=== PATIENT | female | born 1950 | race Caucasian/White ===

== ENCOUNTER 2016-11-13 06:28 | Outpatient (CLI) | payer OTHER | END 2016-11-13 06:29 | disposition home or self-care (01) | DX: D50.9 Iron deficiency anemia, unspecified (principal); R06.02 Shortness of breath ==

== ENCOUNTER 2016-12-02 11:35 | Outpatient (CLI) | payer OTHER | END 2016-12-02 11:36 | disposition home or self-care (01) | DX: R06.02 Shortness of breath (principal); I10 Essential (primary) hypertension; I51.7 Cardiomegaly ==

== ENCOUNTER 2018-02-23 08:00 | Outpatient (CLI) | payer OTHER ==
[2018-02-23 12:20] LABS: BASOPHILS # (AUTO) 0.1 10^3/uL (0.0-0.1); BASOPHILS % (AUTO) 1.2 %; EOSINOPHILS # (AUTO) 0.2 10^3/uL (0.0-0.7); EOSINOPHILS % (AUTO) 3.5 %; HGB - HEMOGLOBIN 13.6 g/dL (12.0-16.0); LYMPHOCYTES # (AUTO) 1.7 10^3/uL (1.5-3.5); LYMPHOCYTES % (AUTO) 38.6 %; MEAN CORPUSCULAR HEMOGLOBIN 30.8 pg (27.0-31.0); MEAN CORPUSCULAR HGB CONC 34.4 g/dL (32.0-36.0); MEAN CORPUSCULAR VOLUME 89.6 fL (81.0-99.0); MEAN PLATELET VOLUME 9.7 fL (7.9-10.8); MONOCYTES # (AUTO) 0.4 10^3/uL (0.0-1.0); MONOCYTES % (AUTO) 9.6 %; NEUTROPHILS # (AUTO) 2.1 10^3/uL (1.5-6.6); NEUTROPHILS % (AUTO) 47.1 %; PLT - PLATELET COUNT 240 10^3/uL (130-450); RED BLOOD COUNT 4.41 10^6/uL (4.20-5.40); RED CELL DISTRIBUTION WIDTH 13.7 % (12.0-15.0); WHITE BLOOD COUNT 4.4 x10^3/uL (4.8-10.8)
[2018-02-23 12:57] LABS: THYROID STIMULATING HORMONE 1.4 uIU/mL (0.34-5.60)
[2018-02-23 12:59] LABS: HB2 TOTAL 15.3 g/dL; HEMOGLOBIN A1C 0.62 g/dL; HEMOGLOBIN A1C % 5.9 % (4.6-6.2)
[2018-02-23 13:03] LABS: FERRITIN 34.1 ng/mL (11.0-306.8)
[2018-02-23 13:04] LABS: % IRON SATURATION 17 % (20-50); ALBUMIN/GLOBULIN RATIO 1.5 (1.0-2.2); ALKALINE PHOSPHATASE 47 IU/L (42-121); ALT ALANINE AMINOTRANSFERASE 17 IU/L (10-60); AST ASPARTATE AMINOTRANSFERASE 20 IU/L (10-42); BILIRUBIN,TOTAL 0.8 mg/dL (0.2-1.0); BUN - BLOOD UREA NITROGEN 17 mg/dL (6-20); CARBON DIOXIDE - CO2 28 mmol/L (21-32); CHLORIDE 102 mmol/L (101-111); CHOL/HDL RATIO 3.4 (<4.4); CHOLESTEROL 208 mg/dL; CREATININE 0.7 mg/dL (0.4-1.0); GFR - MDRD 83 (>89); GLUCOSE 94 mg/dL (70-100); HDL CHOLESTEROL 62 mg/dL; IRON 60 ug/dL (28-170); LDL CHOLESTEROL,CALCULATED 131 mg/dL; LDL/HDL RATIO 2.1 (<4.4); SODIUM 138 mmol/L (135-145); TOTAL IRON BINDING CAPACITY 346 ug/dL (250-450); TOTAL PROTEIN 6.7 g/dL (6.7-8.2); TRANSFERRIN 247 mg/dL (192-382); VLDL CHOLESTEROL 15 mg/dL
== END 2018-02-23 08:01 | disposition home or self-care (01) ==
LOC: LAB.WCP 08:00
PROVIDERS: ATTEND Family Medicine
DX: I10 Essential (primary) hypertension (principal); E78.5 Hyperlipidemia, unspecified; D50.9 Iron deficiency anemia, unspecified; R73.01 Impaired fasting glucose
CPT/HCPCS: 36415; 80053; 80061; 82607; 82728; 83036; 83540; 83721; 84443; 84466; 85025

== ENCOUNTER 2018-05-12 08:15 | Outpatient (CLI) | payer OTHER ==
--- NOTE | 2018-05-12 16:00 | DEXA Report ---
Procedure Date: 05/12/2018 Accession Number: [id number] / [id number] Procedure: DEX - Dexa Spine and/or Hip CPT Code: FULL RESULT: EXAM: Dexa Spine and/or Hip DATE: 05/12/2018 8:47 AM CLINICAL HISTORY: POSTMENOPAUSAL TECHNIQUE: Dual energy x-ray absorptiometry (DXA) was performed on a [employer] System. Regions measured are the AP Spine, femoral neck, and if needed forearm. COMPARISON: None. In accordance with the International Society for Clinical Densitometry (ISCD) guidelines, data from previous exams may be reanalyzed using current recommendations and techniques. This is done to allow a more accurate basis for comparison with the current study. FINDINGS: The data for the lumbar spine is as follows: BMD (g/cm/cm) T-SCORE Z-SCORE REGION L1 1.177 0.4 1.3 L2 1.374 1.4 2.4 L3 1.421 1.8 2.8 L4 1.250 0.4 1.4 TOTAL 1.304 1.0 2.0 NOTE: All evaluable vertebrae are used for classification The data for the hip is as follows: BMD (g/cm/cm) T-SCORE Z-SCORE REGION Neck 0.895 -1.0 0.1 TOTAL 0.857 -1.2 -0.3 NOTE: The femoral neck or total proximal femur, whichever is lowest, is used for classification. IMPRESSION: THE WHO CLASSIFICATION BASED ON THE INTERNATIONAL REFERENCE STANDARD IS OSTEOPENIA. THE FRACTURE RISK IS INCREASED. Please note that bone density in the spine is preserved at this time. RECOMMENDATION: Patients with diagnosis of osteoporosis or osteopenia should have regular bone mineral density assessment. For those eligible for Medicare, routine testing is allowed once every 2 years. Testing frequency can be increased for patients who have rapidly progressing disease or for those who are receiving medical therapy to restore bone mass. COMMENT: World Health Organization (WHO) definitions for osteoporosis and osteopenia: NORMAL BMD: T-score at -1.0 or higher, fracture risk is low OSTEOPENIA BMD: T-score between -1.0 and -2.5, fracture risk is increased. OSTEOPOROSIS BMD: T-score at -2.5 or lower, fracture risk is high. National Osteoporosis Foundation recommends: 1. Obtain adequate dietary calcium (at least 1200 mg per day) and vitamin D (400-800 international units per day). 2. Participate, as appropriate, in regular weightbearing and muscle-strengthening exercise. 3. Avoid tobacco use and reduce alcohol and caffeine intake. 4. For more detailed information see the website at www.NOF.org.
== END 2018-05-12 08:16 | disposition home or self-care (01) ==
LOC: DI 08:15
PROVIDERS: ATTEND Family Medicine
DX: M85.88 Other specified disorders of bone density and structure, other site (principal)
CPT/HCPCS: 77080

== ENCOUNTER 2018-07-02 15:18 | Outpatient (CLI) | payer OTHER ==
--- NOTE | 2018-07-05 09:28 | Mammography Report ---
Reason: SCREENING MAMMO Procedure Date: 07/02/2018 Accession Number: [id number] / [id number] Procedure: AMIRA - Screening Mammo Dig Bilat CPT Code: FULL RESULT: EXAM: Screening Mammo Dig Bilat DATE: 07/02/2018 3:50 PM CLINICAL HISTORY: 67-year-old female presents for screening mammography. TECHNIQUE: Bilateral CC and MLO views were obtained. COMPARISON: 04/20/2015, 10/21/2013, 07/23/2011, 07/15/2011. FINDINGS: The breasts demonstrate scattered fibroglandular densities bilaterally. In the right upper breast 7.7 cm from the nipple, best seen on the MLO view with the suspect correlate on craniocaudal view at the 12:00 position is a cluster of microcalcifications with a developing focal asymmetry. This warrants further imaging, preferably with 3-D technique to exclude summation artifact. No suspicious masses, clustered microcalcifications, or regions of architectural distortion are identified. IMPRESSION: Incomplete examination RECOMMENDATION: Additional evaluation as above. BIRADS CATEGORY 0: Incomplete examination STANDARD QUALIFYING STATEMENTS: 1. This examination was not reviewed with the aid of Computer-Aided Detection (CAD). 2. A negative or benign imaging report should not delay biopsy if clinically suspicious findings are present. Consider surgical consultation if warrented. More than 5% of cancers are not identified by imaging. 3. Dense breasts may obscure an underlying neoplasm.
== END 2018-07-02 15:19 | disposition home or self-care (01) ==
LOC: DI 15:18
PROVIDERS: ATTEND Family Medicine
DX: Z12.31 Encounter for screening mammogram for malignant neoplasm of breast (principal)
CPT/HCPCS: 77067

== ENCOUNTER 2018-07-22 11:06 | Outpatient (CLI) | payer OTHER ==
--- NOTE | 2018-07-22 16:19 | Mammography Report ---
Reason: ABN MAMMO - RT SPEC VIEWS Procedure Date: 07/22/2018 Accession Number: [id number] / [id number] Procedure: AMIRA - Diag Special Views Dig RT CPT Code: FULL RESULT: EXAM: Diag Special Views Dig RT DATE: 07/22/2018 11:31 AM CLINICAL HISTORY: 67-year-old female recalled from screening mammogram for a right breast focal asymmetry. TECHNIQUE: Right magnified CC and magnified MLO views were obtained. COMPARISON: 07/02/2018, 04/20/2015, 10/21/2013. FINDINGS: The right breast demonstrates scattered fibroglandular densities. The previously identified asymmetry resolves with spot magnification in both planes. What was previously identified as a cluster of microcalcifications is also not seen is a tight grouping on spot magnification views and therefore not suspicious. IMPRESSION: Benign findings RECOMMENDATION: Recommend routine annual Screening mammography unless otherwise clinically indicated. BIRADS CATEGORY 2: Benign findings STANDARD QUALIFYING STATEMENTS: 1. This examination was not reviewed with the aid of Computer-Aided Detection (CAD). 2. A negative or benign imaging report should not delay biopsy if clinically suspicious findings are present. Consider surgical consultation if warrented. More than 5% of cancers are not identified by imaging. 3. Dense breasts may obscure an underlying neoplasm.
== END 2018-07-22 11:07 | disposition home or self-care (01) ==
LOC: DI 11:06
PROVIDERS: ATTEND Family Medicine
DX: N63.10 Unspecified lump in the right breast, unspecified quadrant (principal); R92.8 Other abnormal and inconclusive findings on diagnostic imaging of breast

== ENCOUNTER 2019-04-06 11:48 | Observation (INO) | payer OTHER ==
[2019-04-06 12:25] LABS: BASOPHILS # (AUTO) 0.1 10^3/uL (0.0-0.1); BASOPHILS % (AUTO) 0.7 %; EOSINOPHILS # (AUTO) 0.8 10^3/uL (0.0-0.7); HGB - HEMOGLOBIN 14.5 g/dL (12.0-16.0); MEAN CORPUSCULAR HEMOGLOBIN 29.8 pg (27.0-31.0); MEAN CORPUSCULAR HGB CONC 32.4 g/dL (32.0-36.0); MEAN CORPUSCULAR VOLUME 91.8 fL (81.0-99.0); MEAN PLATELET VOLUME 10.9 fL (7.9-10.8); MONOCYTES # (AUTO) 0.7 10^3/uL (0.0-1.0); MONOCYTES % (AUTO) 8.1 %; NEUTROPHILS # (AUTO) 5.8 10^3/uL (1.5-6.6); NEUTROPHILS % (AUTO) 69.7 %; PLT - PLATELET COUNT 263 10^3/uL (130-450); RED BLOOD COUNT 4.87 10^6/uL (4.20-5.40); WHITE BLOOD COUNT 8.3 x10^3/uL (4.8-10.8)
[2019-04-06 12:33] LABS: BILIRUBIN,URINE NEGATIVE (NEGATIVE); GLUCOSE, URINE (UA) NEGATIVE (NEGATIVE); KETONES,URINE (UA) TRACE mg/dL (NEGATIVE); LEUKOCYTE ESTERASE, URINE NEGATIVE (NEGATIVE); NITRITE,URINE NEGATIVE (NEGATIVE); OCCULT BLOOD,URINE NEGATIVE (NEGATIVE); PH,URINE 7.5 PH (5.0-7.5); PROTEIN,URINE NEGATIVE (NEGATIVE); UROBILINOGEN,URINE 1 (NORMAL) E.U./dL (NORMAL)
--- NOTE | 2019-04-06 12:33 | CT Report ---
Reason: New onset perseveration. Procedure Date: 04/06/2019 Accession Number: [id number] / [id number] Procedure: CT - Head W/O Stroke Protocol CPT Code: FULL RESULT: EXAM: CT HEAD EXAM DATE: 04/06/2019 12:23 PM. CLINICAL HISTORY: New onset perseveration. COMPARISON: None. TECHNIQUE: Multiaxial CT images were obtained from the foramen magnum to the vertex. Reformats: Sagittal and coronal. IV contrast: None. In accordance with CT protocol optimization, one or more of the following dose reduction techniques were utilized for this exam: automated exposure control, adjustment of mA and/or KV based on patient size, or use of iterative reconstructive technique. FINDINGS: Parenchyma: No intraparenchymal hemorrhage. No evidence of mass, midline shift, or CT findings of acute infarction. There are areas of low density involving white matter of bilateral cerebral hemispheres. Extraaxial Spaces: Normal for age. No subdural or epidural collections identified. Ventricles: Normal in size and position. Sinuses and Orbits: Imaged paranasal sinuses, orbits, and mastoids show no significant abnormality. Bones: No evidence of fracture or calvarial defect. Other: None. IMPRESSION: No CT evidence of acute cranial process. RADIA The call report notification system was initiated by Dr. Ezekiel Hampton at 12:30 PM on 04/06/2019. The above call report findings were discussed with Dr. Suleman Alonzo by Dr. Ezekiel Hampton at 12:31 PM on 04/06/2019.
[2019-04-06 12:34] LABS: CLARITY,URINE CLEAR (CLEAR)
[2019-04-06 12:38] LABS: ALBUMIN 4.4 g/dL (3.2-5.5); ALBUMIN/GLOBULIN RATIO 1.4 (1.0-2.2); BILIRUBIN,TOTAL 0.8 mg/dL (0.2-1.0); CALCIUM 9.2 mg/dL (8.5-10.3); CREATININE 0.8 mg/dL (0.4-1.0); TOTAL PROTEIN 7.5 g/dL (6.7-8.2)
[2019-04-06 12:56] LABS: INR 1.1 (0.8-1.2); PT - PROTHROMBIN TIME 12.5 secs (9.9-12.6)
--- NOTE | 2019-04-06 13:08 | ED Physician Documentation ---
PD HPI FOCAL NEURO - Stated complaint Stated Complaint: STROKE SYMPTOMS - Chief complaint Chief Complaint: Neuro - History obtained from History obtained from: Patient, Friend - History of Present Illness Timing - onset: How many hours ago (1-2) Time of symptom onset unknown: Time of onset unknown (10-11am today.) Severity of deficit: Mild Associated symptoms: Other (perseveration) Baseline status: positive: A&OX3, ambulatory, indep Similar symptoms before: Has not had sx before - Additional information Additional information: The patient is a 68-year-old female who arrives via ambulance having developed perseveration this morning about 1 or 2 hours prior to arrival. A coworker who lives with her noticed that the patient kept repeating herself and asking the same questions as many as 4 times repeatedly. This is unusual behavior for her. The patient states she thinks she may be having a stroke. There is no history of numbness or weakness, and the patient denies headache, nausea, vomiting, visual disturbance. She denies history of similar symptoms in the past. Review of Systems Constitutional: denies: Fever, Fatigue Eyes: denies: Decreased vision Ears: denies: Tinnitus/ringing Nose: denies: Congestion Throat: denies: Sore throat Cardiac: denies: Chest pain / pressure, Palpitations Respiratory: denies: Dyspnea, Cough GI: denies: Abdominal Pain, Nausea, Vomiting : denies: Dysuria Skin: denies: Rash Musculoskeletal: denies: Neck pain, Back pain, Extremity pain Neurologic: denies: Headache PD PAST MEDICAL HISTORY - Past Medical History Cardiovascular: Hypertension, High cholesterol Respiratory: None Neuro: TIA Endocrine/Autoimmune: HyPOthyroidism GI: None : None HEENT: None Psych: Depression Musculoskeletal: Other Derm: None - Past Surgical History General: Colonoscopy HEENT: Tonsil/Adenoidectomy, Other - Present Medications Home Medications: Ambulatory Orders Medication Instructions Recorded Confirmed Aspirin 81 mg PO DAILY 09/11/15 04/06/19 Hydrochlorothiazide 25 mg PO DAILY 09/11/15 04/06/19 Fluoxetine HCl [Prozac] 20 mg PO DAILY 04/06/19 04/06/19 Levothyroxine Sodium [Synthroid] 50 mcg PO QDAC 04/06/19 04/06/19 Losartan Potassium [Cozaar] 100 mg PO DAILY 04/06/19 04/06/19 Pravastatin [Pravachol] 40 mg PO QPM 04/06/19 04/06/19 raNITIdine [Zantac] 150 mg PO BID 04/06/19 04/06/19 - Allergies Allergies/Adverse Reactions: Allergies Allergy/AdvReac Type Severity Reaction Status Date / Time penicillin G Allergy Unknown Verified 04/06/19 12:04 lisinopril AdvReac Unknown Verified 04/06/19 12:04 niacin AdvReac Unknown Verified 04/06/19 12:04 - Social History Does the pt smoke?: No Smoking Status: Never smoker PD ED PE NORMAL - Vitals Vital signs reviewed: Yes (hypertensive) - General General: Alert and oriented X 3, Well developed/nourished - HEENT HEENT: Atraumatic, PERRL, EOMI, Pharynx benign - Neck Neck: Supple, no meningeal sign, No adenopathy, No JVD - Cardiac Cardiac: RRR, No murmur - Respiratory Respiratory: No respiratory distress, Clear bilaterally - Abdomen Abdomen: Soft, Non tender - Back Back: No CVA TTP - Derm Derm: No rash - Extremities Extremities: No edema, No calf tenderness / cord - Neuro Neuro: Alert and oriented X 3, rn neonatal icu 2-12 intact, No motor deficit, No sensory deficit, Normal speech Eye Opening: Spontaneous Motor: Obeys Commands Verbal: Confused GCS Score: 14 NIHSS - Time Time: 11:55 - Level of Consciousness Level of consciousness: (0) Alert, Keenly responsive LOC Questions: (1) Answers one Q correctly LOC Commands: (0) Performs both correctly - Gaze Best Gaze: (0) Normal - Visual Visual: (0) No loss - Facial Palsy Facial Palsy: (0) Normal, symmetrical movement - Motor Arms (both separate) Motor Arm (right): (0) No drift Motor Arm (left): (0) No drift - Motor Legs (both separate) Motor Leg (right): (0) No drift Motor Leg (left): (0) No drift - Limb Ataxia Limb Ataxia: (0) Absent - Sensory Sensory: (0) Normal - Best Language Best Language: (0) No aphasia - Dysarthria Dysarthria: (0) Normal - Extinction and Inattention (formally neg Extinction and inattention: (0) No abnormality - Total Score/Results Total Score/Result: 1 Results - Vitals Vitals: Vital Signs - 24 hr 04/06/19 04/06/19 04/06/19 12:00 13:06 14:29 Temperature 37.2 C Heart Rate 66 67 86 Respiratory 21 12 23 Rate Blood Pressure 166/94 H 155/80 H 159/87 H O2 Saturation 100 96 97 Oxygen O2 Source [Without Activity] Room air O2 Source Room air - EKG (time done) 11:57 Rate: Rate (enter#) (64) Rhythm: NSR, LAE QRS: Normal Ischemia: Normal ST segments Computer interpretation: Agree with computer - Labs Labs: Laboratory Tests 04/06/19 04/06/19 04/06/19 11:54 12:05 12:05 WBC 8.3 RBC 4.87 Hgb 14.5 Hct 44.7 MCV 91.8 MCH 29.8 MCHC 32.4 RDW 14.0 Plt Count 263 MPV 10.9 H Neut # (Auto) 5.8 Lymph # (Auto) 1.0 L Runnels # (Auto) 0.7 Eos # (Auto) 0.8 H Baso # (Auto) 0.1 Absolute Nucleated RBC 0.00 Nucleated RBC % 0.0 PT INR Sodium 138 Potassium 3.3 L Chloride 98 L Carbon Dioxide 27 Anion Gap 13.0 BUN 17 Creatinine 0.8 Estimated GFR (MDRD) 71 L Glucose 112 H POC Whole Bld Glucose 107 H Calcium 9.2 Total Bilirubin 0.8 AST 23 ALT 21 Alkaline Phosphatase 50 Troponin I Total Protein 7.5 Albumin 4.4 Globulin 3.1 Albumin/Globulin Ratio 1.4 Lipase 31 Urine Color Urine Clarity Urine pH Ur Specific [place] Urine Protein Urine Glucose (UA) Urine Ketones Urine Occult Blood Urine Nitrite Urine Bilirubin Urine Urobilinogen Ur Leukocyte Esterase Ur Microscopic Review Urine Culture Comments 04/06/19 04/06/19 04/06/19 12:05 12:20 12:36 WBC RBC Hgb Hct MCV MCH MCHC RDW Plt Count MPV Neut # (Auto) Lymph # (Auto) Runnels # (Auto) Eos # (Auto) Baso # (Auto) Absolute Nucleated RBC Nucleated RBC % PT 12.5 INR 1.1 Sodium Potassium Chloride Carbon Dioxide Anion Gap BUN Creatinine Estimated GFR (MDRD) Glucose POC Whole Bld Glucose Calcium Total Bilirubin AST ALT Alkaline Phosphatase Troponin I < 0.04 Total Protein Albumin Globulin Albumin/Globulin Ratio Lipase Urine Color DARK YELLOW Urine Clarity CLEAR Urine pH 7.5 Ur Specific [place] 1.010 Urine Protein NEGATIVE Urine Glucose (UA) NEGATIVE Urine Ketones TRACE Urine Occult Blood NEGATIVE Urine Nitrite NEGATIVE Urine Bilirubin NEGATIVE Urine Urobilinogen 1 (NORMAL) Ur Leukocyte Esterase NEGATIVE Ur Microscopic Review NOT INDICATED Urine Culture Comments NOT INDICATED - Rads (name of study) Head CT Radiology: Prelim report reviewed, EMP read contemporaneously, See rad report (No acute intracranial abnormality identified.) PD MEDICAL DECISION MAKING - ED course Complexity details: reviewed results, re-evaluated patient, considered differential, d/w patient, d/w web development consultant ED course: The patient's presentation is most consistent with transient global amnesia. There is no focal neurologic deficit to suggest lateralizing symptoms, and her head CT is negative. Her labs are unremarkable, except for a slightly low potassium of 3.3. During a 3-hour observation time in the emergency room and she continued to perseverate, without exhibiting any other signs of neurologic abnormality. I discussed her condition with the neurologist on-call at [facility]. She recommends of longer observation, and possible MRI of the brain. I discussed her condition with Dr. Atkinson, who accepts her for further evaluation and treatment. Departure - Departure Disposition: ED Place in Observation Clinical Impression: Transient global amnesia, Hypokalemia Hypertension Qualifiers: Hypertension type: unspecified Qualified Code(s): I10 - Essential (primary) hypertension Condition: Stable
[2019-04-06] MEDS ORDERED: ONDANSETRON 4 MG/2 ML VIAL IVP PRN (15:27)
[2019-04-06] MEDS ORDERED: SODIUM CHLORIDE FLUSH 0.9% 10 ML SYRINGE IVP PRN (15:27)
[2019-04-06] MEDS ORDERED: oxyCODONE 5 MG TABLET PO PRN (15:27)
[2019-04-06] MEDS ORDERED: ONDANSETRON ODT 4 MG TABLET TL PRN (15:27)
[2019-04-06] MEDS ORDERED: POTASSIUM CHLORIDE 20 MEQ TABLET PO ONE (17:00)
[2019-04-06] MEDS ORDERED: GADOBUTROL 10 MMOL/10 ML VIAL ONE (18:31)
[2019-04-06] MEDS ORDERED: GADOBUTROL 10 MMOL/10 ML VIAL IVP ONE (18:49)
--- NOTE | 2019-04-06 19:38 | MRI Report ---
Reason: global amnesia, sudden Procedure Date: 04/06/2019 Accession Number: [id number] / [id number] Procedure: MRI - Brain W/WO CPT Code: FULL RESULT: EXAM: MRI BRAIN WITHOUT AND WITH CONTRAST EXAM DATE: 04/06/2019 07:23 PM. CLINICAL HISTORY: 68-year-old presenting with sudden global amnesia. Evaluate for intracranial pathology. COMPARISON: CT head 04/06/2019. TECHNIQUE: Multiplanar, multisequence T1-weighted and fluid-sensitive MR sequences of the brain were performed. Sequences optimized for routine evaluation. Other: None. IV Contrast: 8 cc Gadavist. FINDINGS: Brain Volume: Normal for age. Parenchyma: No acute parenchymal hemorrhage, mass, or midline shift. There are mild to moderate bilateral areas of T2/FLAIR signal hyperintensity seen predominantly involving the subcortical and deep white matter of the left frontal lobe. 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 No areas of restricted diffusion seen to suggest acute infarct. No abnormal areas of parenchymal susceptibility artifact seen. No abnormal enhancement. Ventricles/Cisterns: No hydrocephalus. No abnormal extra-axial fluid collection or hemorrhage. Orbits: Symmetric and unremarkable. Sella [place]: The pituitary gland, cavernous sinuses, suprasellar cistern and optic chiasm are unremarkable. IAC: Symmetric and unremarkable. Vasculature: Normal signal flow void is seen in the major arterial structures at the skull base. The dural sinuses are patent and enhance normally. Sinuses: Minimal mucosal thickening of the maxillary sinuses with tiny bilateral maxillary mucosal retention cysts versus polyps. Mastoid air cells and middle ear cavities are clear. Bones: No focal pathologic appearing marrow signal changes. Other: None. IMPRESSION: 1. No definite acute intracranial pathology seen; specifically, no acute infarct, acute intracranial hemorrhage, mass, hydrocephalus, or midline shift. No abnormal postcontrast enhancement. 2. Mild to moderate white matter changes seen that are nonspecific but may represent sequela of chronic small vessel ischemic disease. RADIA
[2019-04-06] MEDS ORDERED: BENZOCAINE/MENTHOL LOZENGE MM PRN (21:05)
--- NOTE | 2019-04-06 22:21 | HISTORY & PHYSICAL EXAMINATION ---
DATE OF SERVICE: 04/06/2019 Physician: Haritha Atkinson MD PRIMARY CARE PROVIDER: Joseph Coronel DO. ADMITTING PROVIDER: Haritha Atkinson MD CHIEF COMPLAINT: Memory loss and perseveration starting at around 10 this morning. 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 She was hospitalized here for that. She says that life is good. Contemplating intermediate. She currently has some colleagues living with her because they are in the process of moving and needed a temporary place to live, so she has a colleague and the daughter living with her. Not really stressed out. No fever, no chills. No new medications. She does have a history of alcohol abuse. However, she stopped drinking for the most part two years ago when she had a DUI. At that point in time, she was drinking up to a bottle of wine a night. Since the DUI, she only drinks when she is on vacation. Even then, it is only one or two drinks, not a bottle of wine. There has been no change in medications. This morning, she awoke her usual time; had breakfast with her friends. Starting around 10 in the morning, she felt like her memory was starting to get "fuzzy." Friends started reporting that she was perseverating and repeating herself. So she brought herself to the emergency room, was evaluated by Dr. Alonzo. Again, the coworker that brought her in noticed that the patient was repeating herself and kept on asking the same question over and over again. There is no headache, blurred vision, paresthesias. There was no ataxia. In the emergency room, she was noted to be afebrile and mildly hypertensive at 166/94, O2 saturation was 100% on room air, heart rate was 66 and respiration was 21. Her physical exam was normal. CT of the head was normal, as were labs. Dr. Alonzo called [facility]. She was felt to have transient global amnesia and that she should be brought in for an MRI, observation status overnight. Probable discharge tomorrow. I am seeing the patient on [facility]. She is starting to get some of her memory back and has stopped perseverating so much, but she says it is so distressing. She does not even remember being in the emergency room. She knows she is at [facility], that she has had this happen to her before, and she has a hard time putting together data. PAST MEDICAL HISTORY 1. Osteoarthritis with an [place] left knee replacement, October 2015. 2. Depression. 3. Benign essential hypertension. 4. Dyslipidemia. 5. Hypothyroidism. 6. G2, P2, with a postmenopausal status. 7. GERD. 8. Tonsillectomy. 9. Eyelid lift, May 2005 MEDICATIONS 1. Vitamin D 400 units daily. 2. Ranitidine 150 mg b.i.d. 3. Fluticasone nasal spray when she is having allergies. 4. Pravastatin 40 mg nightly. 5. Hydrochlorothiazide 25 mg daily. 6. Levothyroxine 15 mcg orally. 7. Prozac 20 mg orally. 8. Losartan 100 mg daily. ALLERGIES SHE IS ALLERGIC TO: 1. PENICILLIN. 2. LISINOPRIL. 3. NIACIN. SOCIAL HISTORY: The patient initially stated that she never smoked, but in reviewing her old records through [facility], she smoked for five years and quit in 1979. Alcohol abuse, as stated, as above. She was drinking up to a bottle of wine a night and really did not think much of it until she got the DUI. 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 She again does not drink unless she is on vacation. She has no history of withdrawal, seizures. She was , for the last few years. Lives in her own home. 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 One child lives in [place], [place], and the other child lives out of [facility] as well. FAMILY HISTORY 1. Mom is alive at 96. She herself had a history of an episode of global amnesia when she was in her 60s. She has hypertension, history of stroke, history of coronary artery disease, and glucose intolerance. 2. father before the patient was born. He of polio while her mother was with her. 3. One full sibling has hyperlipidemia. One half sibling. 4. Two children are healthy, son has hyperlipidemia. REVIEW OF SYSTEMS GENERAL: Negative for constitutional complaints at this time. She laughs and says she does not even know if she is telling me the right history, but as far as she remembers she feels like she is doing pretty well. She denies fever, chills, unexpected weight changes. HEENT: She has had cataract surgery. Denies any blurred vision. No dysphagia, dysarthria, facial dysesthesias. No problems other than allergies. CARDIAC: Denies chest pain, palpitations, shortness of breath, edema, or orthopnea. She does not remember having any history of valvular heart disease. PULMONARY: She denies history of emphysema, wheezing. GASTROINTESTINAL: She remembers having fatty liver as a problem when she was drinking; that her liver enzymes were abnormal on Zocor or any kind of statin. She cannot remember if she has had a colonoscopy. Right now, she denies abdominal pain, change in bowel habits, blood in her stool. JOINTS: She has had a knee replacement. Hands and feet and knees do get stiff, especially in the winter, but nothing that she cannot live with. SKIN: Does not remember having cancer, rashes, new moles. PSYCHIATRIC: Depression, especially when her . Also when she got her DUI, it just really overturned her life. But she says that she feels like she is over that right now and not severely depressed. No hallucinations. No delusions. ENDOCRINE: She did have a history of elevated glucose in the past. A1c was as high as 6.3%. 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 Also has migraines at times. Denies seizures, syncope. At this time, she denies any focal neurological deficits or ataxia or dysesthesias. PHYSICAL EXAMINATION VITAL SIGNS: Temperature is 37.5, pulse is 81, blood pressure is 148/94. GENERAL: She is a slender, comfortable female, who looks her stated age. She is relaxing, lying flat on her back, hands lifted behind her head and legs crossed at the knees. She is contemplating the feeling. NECK: Unremarkable. Pupils are equal, round and reactive. Sclerae nonicteric. No facial asymmetry. No scalp contusions. Tongue midline. Gag intact. Speech is normal. Neck is supple without goiter or bruits. LUNGS: Clear to auscultation and percussion without crackles, rhonchi, or wheezing. HEART: PMI is normally placed with a regular rate and rhythm. No murmurs, rubs, or gallops. ABDOMEN: Soft, nontender. No organomegaly. Normal bowel sounds. EXTREMITIES: Warm. Other than osteoarthritis, there are no other findings. There is no clubbing, cyanosis, or edema. NEUROLOGIC: She is alert to place, date, but cannot really tell me what time it is. She says the whole day has passed in a blur, and she is startled when I point out to her that she started in the emergency room before she came here. She is upset about that because she cannot remember being in the emergency room. Cranial nerves II-XII are normal. She can follow one-step commands. Upper and lower extremities strength testing is normal. Toes are downgoing. Plantar and dorsiflexion is normal. LABORATORY DATA: CMP is showing only hypokalemia at 3.3. GFR 71 and random glucose of 112. Her last A1c was 5.9% in February 2018. Liver enzymes are normal and troponin is less than 0.04. CBC is normal. MCV is 91. INR is 1.1. Urinalysis has trace ketones and is otherwise normal. IMAGING: CT of the head is normal. ASSESSMENT AND PLAN 1. Transient global amnesia. It is interesting that this patient had another episode in 2008 and yet another episode today. Plan: Per recommendations of [facility], the patient will be placed in observation, an MRI tomorrow morning. She already seems to be clearing from her perseveration and memory loss that was present in the emergency room. Attestation: The patient will be discharged within 96 hours. 2. Hypertension history. Blood pressure mildly elevated. We will resume her usual medications. Right now, she is in the 140s to 150s systolic. 3. Hypokalemia. The patient's potassium will be supplemented orally. She is not on Lasix, but on hydrochlorothiazide. Hypokalemia is not a chronic presentation for her. 4. FULL CODE STATUS. The patient does not recall if she has a POLST form. She will discuss that with her primary care provider. 5. Deep venous thrombosis prophylaxis will be JULIANA self. TD: 04/06/2019 18:23 [facility]
[2019-04-06] MEDS: SODIUM CHLORIDE FLUSH 0.9% 10 ML SYRINGE IVP SCH (23:35)
[2019-04-07] MEDS ORDERED: LEVOTHYROXINE 25 MCG TABLET PO SCH (07:00)
[2019-04-07] MEDS ORDERED: LOSARTAN 50 MG TABLET PO SCH (09:00)
[2019-04-07] MEDS ORDERED: FLUoxetine 10 MG CAPSULE PO SCH (09:00)
[2019-04-07] MEDS ORDERED: POLYETHYLENE GLYCOL 3350 17 GM PACKET PO SCH (09:00)
[2019-04-07] MEDS: SODIUM CHLORIDE FLUSH 0.9% 10 ML SYRINGE IVP SCH (09:13)
[2019-04-07 11:42] VITALS: BP 111/74
--- NOTE | 2019-04-07 11:43 | Discharge Plan ---
Discharge Plan Problem Reviewed?: Yes Disposition: Home, Self Care Condition: Stable Diet: Regular Activity Restrictions: Activity as Tolerated Shower Restrictions: No Driving Restrictions: No Health Concerns: Sudden loss of memory and you kept repeating questions Plan of Treatment: You were treated as transient global amnesia. Is a condition where he suddenly lose memory for unknown reasons. Unfortunately you have had a previous episode in 2008. You have gradually recovered and are now normal. We did an MRI of the brain to make sure there is no new meningitis or strokes and that was negative. We also looked at your labs for metabolic derangement such as dehydration, infection, drug effect and those were negative. Care Goals: You to return to normal activity and cognitive function. Please follow-up with your primary care provider in the next 1 to 2 weeks. Assessment: Patient expresses understanding of her condition and goals. No Smoking: If you smoke, Please STOP! Call for help. Follow-up with: Joseph Coronel DO [Primary Care Provider] -
[2019-04-07] MEDS ORDERED: ACETAMINOPHEN 325 MG TABLET PO PRN (12:14)
== END 2019-04-07 13:00 | disposition home or self-care (01) ==
LOC: ED 11:48 → OBS 15:27
PROVIDERS: ADMIT Specialist; ATTEND Specialist
DX: G45.4 Transient global amnesia (principal); E87.6 Hypokalemia; I10 Essential (primary) hypertension; E78.5 Hyperlipidemia, unspecified; E03.9 Hypothyroidism, unspecified; F32.9 Major depressive disorder, single episode, unspecified; K21.9 Gastro-esophageal reflux disease without esophagitis; F10.11 Alcohol abuse, in remission; Z78.0 Asymptomatic menopausal state; Z96.652 Presence of left artificial knee joint; M19.90 Unspecified osteoarthritis, unspecified site; Z87.891 Personal history of nicotine dependence; Z79.82 Long term (current) use of aspirin; R29.701 NIHSS score 1
CPT/HCPCS: 36415; 70450; 70553; 80053; 81003; 83690; 84132; 84484; 85025; 85610; 93005; 99284; 99285; A9270; A9585; G0378; 81001; 87086

== ENCOUNTER 2020-08-20 11:32 | Outpatient (CLI) | payer OTHER ==
[2020-08-20 17:49] LABS: BASOPHILS # (AUTO) 0.1 10^3/uL (0.0-0.1); BASOPHILS % (AUTO) 1.1 %; EOSINOPHILS # (AUTO) 0.2 10^3/uL (0.0-0.7); EOSINOPHILS % (AUTO) 3.9 %; HGB - HEMOGLOBIN 13.1 g/dL (12.0-16.0); LYMPHOCYTES # (AUTO) 1.2 10^3/uL (1.5-3.5); LYMPHOCYTES % (AUTO) 27.8 %; MEAN CORPUSCULAR VOLUME 93.8 fL (81.0-99.0); MEAN PLATELET VOLUME 10.6 fL (7.9-10.8); MONOCYTES # (AUTO) 0.4 10^3/uL (0.0-1.0); MONOCYTES % (AUTO) 9.4 %; NEUTROPHILS # (AUTO) 2.5 10^3/uL (1.5-6.6); NEUTROPHILS % (AUTO) 57.6 %; PLT - PLATELET COUNT 275 10^3/uL (130-450); RED BLOOD COUNT 4.36 10^6/uL (4.20-5.40); RED CELL DISTRIBUTION WIDTH 14.2 % (12.0-15.0); WHITE BLOOD COUNT 4.4 x10^3/uL (4.8-10.8)
[2020-08-20 18:13] LABS: ALBUMIN 3.7 g/dL (3.2-5.5); ALBUMIN/GLOBULIN RATIO 1.3 (1.0-2.2); ALKALINE PHOSPHATASE 54 IU/L (42-121); ALT ALANINE AMINOTRANSFERASE 18 IU/L (10-60); AST ASPARTATE AMINOTRANSFERASE 20 IU/L (10-42); BILIRUBIN,TOTAL 0.9 mg/dL (0.2-1.0); BUN - BLOOD UREA NITROGEN 22 mg/dL (6-20); CALCIUM 8.8 mg/dL (8.5-10.3); CARBON DIOXIDE - CO2 25 mmol/L (21-32); CHLORIDE 105 mmol/L (101-111); CHOL/HDL RATIO 3.1 (<4.4); CHOLESTEROL 221 mg/dL; CREATININE 0.7 mg/dL (0.4-1.0); GLUCOSE 102 mg/dL (70-100); HDL CHOLESTEROL 71 mg/dL; LDL CHOLESTEROL,CALCULATED 132 mg/dL; LDL/HDL RATIO 1.9 (<4.4); SODIUM 138 mmol/L (135-145); TOTAL PROTEIN 6.6 g/dL (6.7-8.2); VLDL CHOLESTEROL 18 mg/dL
== END 2020-08-20 23:59 | disposition home or self-care (01) ==
LOC: LAB.WCP 11:32
PROVIDERS: ATTEND Family Medicine
DX: I10 Essential (primary) hypertension (principal); E78.5 Hyperlipidemia, unspecified; E03.9 Hypothyroidism, unspecified
CPT/HCPCS: 36415; 80053; 80061; 83721; 84443; 85025